=== PATIENT | female | born 1935 | race African-American/Black ===

== ENCOUNTER 2016-11-24 18:54 | Emergency (ER) | payer OTHER, MEDICARE ==
[~2016-11-24] VITALS: Ht 160 cm; Wt 77.1 kg
--- NOTE | 2016-11-24 19:51 | ED GI/GU/ABDOMINAL COMPLAINT ---
History of Present Illness General Chief Complaint: Abdominal Pain/Flank Pain Stated Complaint: ABDOMINAL PAIN,N/V/D Source: patient, family Exam Limitations: no limitations Vital Signs & Intake/Output Vital Signs & Intake/Output Vital Signs Date Time Temp Pulse Resp B/P B/P Pulse O2 O2 Flow FiO2 Mean Ox Delivery Rate 11/24 2213 98.0 80 18 167/76 98 Room Air 11/24 2000 Room Air 11/24 1858 98.0 81 16 109/63 98 Room Air Allergies Coded Allergies: Sulfa (Sulfonamide Antibiotics) (RASH ITCH 11/24/16) Reconcile Medications Apixaban (Eliquis) 5 MG TABLET 1 TAB PO BID BLOOD THINNER (Reported) B&C/FA/Zinc/Copper Oxide/Vit E (Stress B-Complex Tablet) 500-0.4 MG TABLET 1 TAB PO DAILY SUPPLEMENT (Reported) Calcium Carbonate/Vitamin D3 (Caltrate 600 + D Tablet) (Unknown Strength) TABLET (Unknown Dose) PO DAILY SUPPLEMENT (Reported) Doxazosin Mesylate 2 MG TABLET 1 TAB PO DAILY UNKNOWN (Reported) Metoprolol Succinate 25 MG TAB 1 TAB PO DAILY HEART/BP (Reported) Ondansetron (Zofran Odt) 4 MG TAB.RAPDIS 1 TAB SL TID NAUSEA Pravastatin Sodium 40 MG TABLET 1 TAB PO QPM CHOLESTEROL (Reported) Valsartan 320 MG TABLET 1 TAB PO DAILY BP (Reported) Triage Note: PT REPORTS N/V/D SINCE MONDAY. PT HAS NOT VOMITED SINCE MONDAY BUT SHE CONT. TO HAVE DIARRHEA. PT STATES SHE IS HAVING TENDERNESS IN HER ABD. Triage Nurses Notes Reviewed? yes ? N Is pt currently ? No Onset: Abrupt Duration: day(s): (4) Timing: recent history Quality/Severity: moderate, sharpness, severe Location: generalized abdomen Radiation: no radiation Prior Abdominal Problems: none No Modifying Factors: none HPI: 81-year-old female comes into emergency room with complaints of abdominal pain and diarrhea. Patient has had 2-3 bowel movements of loose stool per day over the past 4 days. Denies any vomiting. Denies any chest pain shortness of breath. Denies any blood in her stool. Denies any previous abdominal surgeries. Denies any sick contacts. Denies any other associated symptoms. (ANNETTA CHRISTIANSON,ALBERT) Past History Travel History Traveled to [place] past 21 day No Medical History Any Pertinent Medical History? see below for history Cardiovascular: AFIB, hypertension, hyperlipidemia Surgical History Surgical History: non-contributory Psychosocial History What is your primary language Salvadorean Tobacco Use: Never used ETOH Use: occasional use Illicit Drug Use: denies illicit drug use Family History Hx Contributory? No (ALBERT PHELPS) Review of Systems Review of Systems Constitutional: Reports: no symptoms. EENTM: Reports: no symptoms. Respiratory: Reports: no symptoms. Cardiovascular: Reports: no symptoms. GI: Reports: see HPI. Genitourinary: Reports: no symptoms. Musculoskeletal: Reports: no symptoms. Skin: Reports: no symptoms. Neurological/Psychological: Reports: no symptoms. Hematologic/Endocrine: Reports: no symptoms. Immunologic/Allergic: Reports: no symptoms. All Other Systems: Reviewed and Negative (ALBERT PHELPS) Physical Exam Physical Exam General Appearance: well developed/nourished, alert, awake Head: atraumatic Eyes: Bilateral: normal appearance, EOMI. Ears, Nose, Throat, Mouth: hearing grossly normal, moist mucous membrane Neck: normal inspection Respiratory: normal breath sounds, no respiratory distress Cardiovascular: irregularly irregular Gastrointestinal: soft, tenderness (EPIGASTRIC) Back: normal inspection Extremities: normal range of motion Neurologic/Psych: awake, alert, oriented x 3, normal gait, normal mood/affect Skin: intact, normal color Core Measures ACS in differential dx? No Severe Sepsis Present: No Septic Shock Present: No (ALBERT PHELPS) Progress Differential Diagnosis: AAA, AMI, appendicitis, biliary colic, cholecystitis, gastritis, hepatitis, ischemic bowel, kidney stone, ovarian cyst, ovarian torsion, pancreatitis, PID/cervicitis, peptic ulcer, PUD/GERD, perforated viscous, SBO, threatened AB, UTI/pyelo Plan of Care: Orders Procedure Date/time Status CULTURE,URINE 11/24 2228 Active URINALYSIS 11/24 1936 Complete TROPONIN LEVEL 11/24 1936 Complete LIPASE 11/24 1936 Complete LACTIC ACID 11/24 1936 Complete COMPREHENSIVE METABOLIC PANEL 11/24 1936 Complete CBC WITHOUT DIFFERENTIAL 11/24 1936 Complete EKG 11/24 1936 Active Laboratory Tests 11/24/162236: Lactic Acid Cancelled 11/24/162234: Urine Color YEL, Urine Clarity CLEAR, Urine pH 5.5, Ur Specific [place] <= 1.005 , Urine Protein NEG, Urine Ketones NEG, Urine Nitrite NEG, Urine Bilirubin NEG, Urine Urobilinogen 0.2, Ur Leukocyte Esterase NEG, Ur Microscopic EXAM NOT REQUIRED, Urine Hemoglobin NEG, Urine Glucose NEG 11/24/161953: Anion Gap 12, Estimated GFR 48 L, BUN/Creatinine Ratio 14.5, Glucose 104 H, Lactic Acid 1.1, Calcium 8.2 L, Total Bilirubin 0.3, AST 30, ALT 32, Alkaline Phosphatase 59, Troponin I < 0.01, Total Protein 6.7, Albumin 3.8, Globulin 2.9, Albumin/Globulin Ratio 1.3, Lipase 169, CBC w Diff NO MAN DIFF REQ, RBC 4.11 L, MCV 85.3, MCH 27.8, RDW 14.4, MPV 8.3, Gran % 61.6, Lymphocytes % 23.7, Monocytes % 12.7 H, Eosinophils % 1.5, Basophils % 0.5, Absolute Granulocytes 2.8, Absolute Lymphocytes 1.1 L, Absolute Monocytes 0.6, Absolute Eosinophils 0.1, Absolute Basophils 0, PUBS MCHC 32.5 L Microbiology 11/24 2234 URINE ROUT: Urine Culture - RECD Diagnostic Imaging: Viewed by Me: CT Scan. Discussed w/RAD: CT Scan. Radiology Impression: SERVICE DATE: 11/24/16 EXAM TYPE: CAT - CT ABD & PELVIS W IV CONTRAST EXAMINATION: CT ABDOMEN AND PELVIS WITH CONTRAST CLINICAL INFORMATION: Epigastric pain COMPARISON: None TECHNIQUE: Multidetector volumetric imaging was performed of the abdomen and pelvis before and after the IV administration of 95 mL of Optiray 320 intravenous contrast. Sagittal and coronal reformatted images were obtained on the technologist's workstation. DLP: 392 mGy-cm FINDINGS: LUNG BASES: No suspicious abnormality in the visualized lower chest. LIVER, GALLBLADDER, AND BILIARY TREE: No suspicious abnormality the liver. The liver contour appears smooth. There is no calcified gallstone or gallbladder wall thickening. There is no biliary dilation. PANCREAS: No enlargement. No pancreatic ductal dilation. No peripancreatic fat stranding SPLEEN: Within normal limits ADRENAL GLANDS: Minimal nodularity of the adrenal glands. KIDNEYS AND URETERS: There are symmetric nephrograms. No suspicious renal mass. There is no dilation of the urinary collecting system on either side. There is no definite urinary calculus. BLADDER: No suspicious abnormality GASTROINTESTINAL TRACT: No localized colonic wall thickening. The appendix is normal. There is no significant small bowel dilation. No definite abnormality of the stomach. ABDOMINAL WALL: Evidence of previous midline surgery. Tiny fat- containing hernia just above the umbilicus. No associated fat stranding. This is best demonstrated on image 409, series 3. LYMPH NODES: There are no enlarged abdominal or pelvic lymph nodes. No free intraperitoneal fluid. VASCULAR: There is no abdominal aortic aneurysm. The portal vein enhances. PELVIC VISCERA: There are multiple calcified uterine fibroids. No suspicious adnexal mass. OSSEOUS STRUCTURES: Extensive osteophytes throughout the spine. No suspicious focal lesion. IMPRESSION: No definite etiology for epigastric pain demonstrated. Postoperative changes of the abdominal wall. No fat stranding. DICTATED BY: JOVON FOREMAN MD DATE/TIME DICTATED:11/24/162147 PLODDING OPERATOR:DARRIN DATE/TIME TRANSCRIBED:11/24/162147 Initial ED EKG: normal intervals, normal p-waves, normal QRS complex, normal sinus rhythm, rate (64), nonspecific ST T wave chg (ALBERT PHELPS) Departure Departure Disposition: HOME OR SELF CARE Condition: Stable Clinical Impression Primary Impression: Abdominal pain Referrals: MARIZA BARNEY,NIKKI Doll (PCP/Family) Additional Instructions: Take Zofran ODT as prescribed. Follow-up with your primary care doctor. Drink plenty of water to stay hydrated and flush her kidneys out after receiving the contrast dye here in the hospital. Return immediately if any chest pain or any other concerns worsening symptoms. Please go over all results of today's visit with your primary care doctor. Contact your primary care doctor to let them know you were here in the emergency room. There may be nonspecific findings which may not be related to your visit today here in the emergency room but may require further evaluation and chronic monitoring by your primary care doctor. If you had a laceration today the chance of foreign body always remains. You should follow-up with your primary care doctor for recheck in 3-5 days for a wound check. If you had an x-ray done there is a chance that a fracture could have been missed on initial read and you should follow-up with your primary care doctor for repeat x-rays if symptoms persist. If your blood pressure was elevated here in the emergency room please have rechecked by her primary care doctor within the next 48 hours by your primary care doctor. If you were prescribed a narcotic here in the emergency room or any type of controlled substances you're not allowed to drive while taking this medication or operate any type of heavy machinery. Narcotics can make you feel lightheaded dizziness nausea and can cause constipation. You may need to pickle cutter a stool softener. Thank you for choosing [facility] emergency room. Please return to the emergency room immediately if you have any other concerns worsening of symptoms. Departure Forms: Customer Survey General Discharge Information Prescriptions: Current Visit Scripts Ondansetron (Zofran Odt) 1 TAB SL TID #10 TAB Comments 11/24/2016 10:32:28 PM Patient clinically looks well. She has not requested any pain medication here. Symptoms are likely most viral in nature. Nausea vomiting with associated low white count and associated diarrhea. Patient will be following up with her primary care doctor. Patient was told to return immediately if she has any worsening symptoms. Case was discussed with Dr. gunderson and he agrees with plan of care. Patient understands and agrees with plan of care. (ALBERT PHELPS) PA/DIABETES EDUCATION COORDINATOR Co-Sign Statement Statement: ED Attending supervision documentation- x I saw and evaluated the patient. I have also reviewed all the pertinent lab results and diagnostic results. I agree with the findings and the plan of care as documented in the PA's/DIABETES EDUCATION COORDINATOR's documentation. [] I have reviewed the ED Record and agree with the PA's/DIABETES EDUCATION COORDINATOR's documentation. [] Additions or exceptions (if any) to the PAs/DIABETES EDUCATION COORDINATOR's note and plan are summarized below: [] (JACKIE BARNEY,KANDICE)
[2016-11-24 20:03] LABS: ABSOLUTE BASOPHIL COUNT 0 /CUMM (0.0-0.2); ABSOLUTE EOSINOPHIL COUNT 0.1 /CUMM (0.0-0.7); ABSOLUTE GRANULOCYTE CT 2.8 /CUMM (1.4-6.5); ABSOLUTE LYMPH COUNT 1.1 /CUMM (1.2-3.4); ABSOLUTE MONOCYTE COUNT 0.6 /CUMM (0.10-0.60); BASOPHIL % 0.5 % (0.0-2.0); EOSINOPHIL % 1.5 % (0-5); GRANULOCYTE % 61.6 % (42.2-75.2); HEMATOCRIT 35.1 % (37-47); MEAN CORPUSCULAR HGB 27.8 PG (27.0-31.0); MEAN CORPUSCULAR HGB CONC 32.5 G/DL (33.0-37.0); MEAN CORPUSCULAR VOLUME 85.3 FL (81.0-99.0); MEAN PLATELET VOLUME 8.3 FL (7.4-10.4); PLATELET COUNT 218 /CUMM (130-400); RBC DISTRIBUTION WIDTH 14.4 % (11.5-14.5); RED BLOOD CELL CT 4.11 /CUMM (4.20-5.40); WHITE BLOOD CELL COUNT 4.6 /CUMM (4.8-10.8)
[2016-11-24] MEDS ORDERED: DOXAZOSIN MESYLA2 M1 PO (21:29)
[2016-11-24] MEDS ORDERED: METOPROLOL SUCC25 M1 PO (21:29)
[2016-11-24] MEDS ORDERED: VALSARTAN320 M1 PO (21:29)
[2016-11-24] MEDS ORDERED: ELIQUIS5 M1 PO (21:29)
[2016-11-24] MEDS ORDERED: STRESS B-COMPL1 EACH PO (21:30)
[2016-11-24] MEDS ORDERED: CALTRATE 600 +1 EACH PO (21:30)
[2016-11-24] MEDS ORDERED: PRAVASTATIN SOD40 M2 PO (21:30)
--- NOTE | 2016-11-24 22:01 | CT SCAN REPORT ---
EXAMINATION: CT ABDOMEN AND PELVIS WITH CONTRAST CLINICAL INFORMATION: Epigastric pain COMPARISON: None TECHNIQUE: Multidetector volumetric imaging was performed of the abdomen and pelvis before and after the IV administration of 95 mL of Optiray 320 intravenous contrast. Sagittal and coronal reformatted images were obtained on the technologist's workstation. DLP: 392 mGy-cm FINDINGS: LUNG BASES: No suspicious abnormality in the visualized lower chest. LIVER, GALLBLADDER, AND BILIARY TREE: No suspicious abnormality the liver. The liver contour appears smooth. There is no calcified gallstone or gallbladder wall thickening. There is no biliary dilation. PANCREAS: No enlargement. No pancreatic ductal dilation. No peripancreatic fat stranding SPLEEN: Within normal limits ADRENAL GLANDS: Minimal nodularity of the adrenal glands. KIDNEYS AND URETERS: There are symmetric nephrograms. No suspicious renal mass. There is no dilation of the urinary collecting system on either side. There is no definite urinary calculus. BLADDER: No suspicious abnormality GASTROINTESTINAL TRACT: No localized colonic wall thickening. The appendix is normal. There is no significant small bowel dilation. No definite abnormality of the stomach. ABDOMINAL WALL: Evidence of previous midline surgery. Tiny fat-containing hernia just above the umbilicus. No associated fat stranding. This is best demonstrated on image 409, series 3. LYMPH NODES: There are no enlarged abdominal or pelvic lymph nodes. No free intraperitoneal fluid. VASCULAR: There is no abdominal aortic aneurysm. The portal vein enhances. PELVIC VISCERA: There are multiple calcified uterine fibroids. No suspicious adnexal mass. OSSEOUS STRUCTURES: Extensive osteophytes throughout the spine. No suspicious focal lesion. IMPRESSION: No definite etiology for epigastric pain demonstrated. Postoperative changes of the abdominal wall. No fat stranding.
[2016-11-24 22:13] VITALS: BP 167/76
[2016-11-24] MEDS ORDERED: ZOFRAN ODT4 M1 SL (22:45)
== END 2016-11-24 22:54 ==
LOC: ERH 18:54
PROVIDERS: Physician Assistant Medical
DX: R10.13 Epigastric pain (principal)
CPT/HCPCS: 74177; 81003; 87086; 93005; 93010